=== PATIENT | male | born 1970 | race Caucasian/White ===

== ENCOUNTER 2017-05-18 12:04 | Emergency (ER) | payer MEDICARE ==
[2015-07-10 09:42] VITALS: BMI 30.4
[~2017-05-18 12:04] MED LIST: ASPIRIN EC81 M1 PO; TOPROL XL25 MG PO; TRICOR145 MG PO
[2017-05-18 13:18] LABS: APPEARANCE CLEAR (CLEAR); BACTERIA FEW /hpf (NONE SEEN); BILIRUBIN NEGATIVE (NEGATIVE); COLOR YELLOW (YELLOW); EPITHELIAL CELLS 0-5 /hpf (0-5); GLUCOSE NEGATIVE (NEGATIVE); KETONE NEGATIVE (NEGATIVE); MUCUS <1+ /lpf (NONE SEEN); NITRITE NEGATIVE (NEGATIVE); PROTEIN NEGATIVE (NEGATIVE); SPECIFIC GRAVITY 1.015 (1.005-1.020); WHITE CELLS - URINE 0-5 /hpf (0-5)
== END 2017-05-18 15:20 | disposition home or self-care (01) ==
LOC: D.ER 12:04
PROVIDERS: Emergency Medicine
DX: M54.5 Low back pain (principal); F90.9 Attention-deficit hyperactivity disorder, unspecified type

== ENCOUNTER 2017-06-04 11:49 | Outpatient (CLI) | payer MEDICARE ==
[~2017-06-04] VITALS: Ht 172.7 cm; Wt 95.5 kg
[2017-06-04] MEDS ORDERED: HYDROCODONE-APA1 TAB PO (13:41)
[2017-06-04] MEDS ORDERED: TRAZODONE HCL50 MG PO (13:42)
[2017-06-04] MEDS ORDERED: DICLOFENAC SODI50 MG PO (13:42)
[2017-06-04 13:48] VITALS: BP 129/83; Ht 172.7 cm; Wt 95.5 kg
[2017-06-04 13:51] LABS: BASOPHILS 0.2 % (0-2); EOSINOPHILS 5.2 % (0-7); HEMATOCRIT 46.7 % (42.0-54.0); HEMOGLOBIN 16.4 g/dL (13.5-17.5); IMMATURE GRANULOCYTES 0.2 % (0-5); LYMPHOCYTES 36.7 % (15-50); MCH 29.8 pg (26.0-34.0); MCHC 35.1 g/dL (31.0-37.0); MCV 84.9 fL (80.0-100.0); MEAN PLATELET VOLUME 11.4 fL (7.4-10.4); MONOCYTES 15.7 % (2-11); PLATELET COUNT 131 10x3/uL (130-400); RDW 12.6 % (11.5-14.5); WBC 4.4 10x3/uL (4.8-10.8)
== END 2017-06-04 14:35 | disposition home or self-care (01) ==
LOC: D.OPS 11:49
PROVIDERS: Family Medicine
DX: D75.1 Secondary polycythemia (principal)

== ENCOUNTER 2018-05-18 10:35 | Outpatient (CLI) | payer MEDICARE ==
[~2018-05-18] VITALS: Ht 172.7 cm; Wt 90.9 kg
--- NOTE | ~2018-05-18 | HEMODYNAMI ---
PATIENT:ALEJANDRA PRAKASH MEDICAL RECORD: [id number] : 70 LOCATION:D.CAT ADMISSION DATE: 05/18/18 Generatedon:05/18/201814:14 Patient name: ALEJANDRA PRAKASH Patient #: [id number] SSN: : 1970 Date of study: 05/18/2018 Page: Of Hemodynamic Procedure Report Patient Data Patient Demographics Procedure consent was obtained First Name: ALEJANDRA Gender: Male Last Name: OLINDA : 1970 [facility] Initial: TYLER Age: 47 year(s) Patient #: [id number] Race: Additional ID: [id number] Contact details Address: [address] [place] [address] State: [place] City: [place] Zip code: [address] Past Medical History Allergies Allergen Reaction Date Comments Reported Penicillins 07/10/2015 Other allergy 07/10/2015 phenobarbitol Other allergy 05/18/2018 Penicillins 05/18/2018 Admission Admission Data Admission Date: 05/18/2018 Admission Time: 10:35 Admit Source: Other Procedure Procedure Types Cath Procedure Diagnostic Procedure LHC LHC w/Coronaries Peripheral Cath Diagnostic Procedure Inspector Receiving Peripheral Procedures Ghcpp-Nszeyvs-Ljv-Off Procedure Description Procedure Date Procedure Date: 05/18/2018 Procedure Start Time: 13:58 Procedure End Time: 14:07 Procedure Staff Name Function Vick Dove RN Fishing Vessel Deckhand Damaso Miguel MD Performing Physician Chase Sanchez RT Scrub Candice Sanchez RN Fishing Vessel Deckhand Charito Nieves RT Monitor Procedure Data Cath Procedure Fluoroscopy Diagnostic fluoroscopy Total fluoroscopy Time: 1.6 time: 1.6 min min Diagnostic fluoroscopy Total fluoroscopy dose: 528 dose: 528 mGy mGy Contrast Material Contrast Material Type Amount (ml) Isovue 300 99 Entry Location Entry Primary Successful Side Size Upsize Upsize Entry Closure Succes sful Closure Location (Fr) 1 (Fr) 2 (Fr) Remarks Device Remarks Femoral Right 5 Fr Exoseal artery Estimated blood loss: 5 ml Diagnostic catheters Device Type Used For End Catheter Placement MULTIPACK Pigtail 5 Fr LV Angiography catheter MULTIPACK JL 4.0 5Fr Left Coronary catheter Angiography MULTIPACK 3DRC 5Fr Right Coronary catheter Angiography Procedure Complications No complications Procedure Medications Medication Administration Route Dosage 0.9% NaCl I.V. 100 ml/hr Oxygen etCO2 Nasal cannula 2 l/min Lidocaine 2% added to field 20 Heparin Flush Bag added to field 2 bags (1000units/500ml NS) Versed I.V. 2 mg Fentanyl I.V. 50 mcg Hemodynamics Rest Heart Rate: 56 (bpm) Pressure Samples Time Site Value (mmHg) Purpose Heart Use Rate(bpm) 14:00 LV 119/19,20 Snapshot 61 14:00 LV 118/16,20 Pullback 63 14:00 AO 132/88(107) Pullback 63 Gradients Valve Time Site 1 Site 2 Mean SEP/DFP Peak To Heart Use (mmHg) (sec/min) Peak Rate (mmHg) (bpm) Aortic 14:00 LV AO 0 63 118/16,20 132/88(107) Calculations Valve P-P Mean Valve Index Valve Source Name Gradient Area Flow (cm2) Aortic 0 0 Snapshots Pre Cath Intra NCS Post Cath Vital Signs Time Heart Resp SPO2 etCO2 NIBP (mmHg) Rhythm Pain Sedation Rate (ipm) (%) (mmHg) Status Level (bpm) 13:45:15 53 13 99 36 128/85(100) NSR 0 (11) 10(A) , No pain 13:50:09 57 18 100 35.5 124/88(104) NSR 0 (11) 10(A) , No pain 13:54:20 61 16 99 35.5 122/82(99) NSR 0 (11) 10(A) , No pain 13:58:32 59 16 98 33.2 117/76(91) NSR 0 (11) 10(A) , No pain 14:02:46 68 15 98 37 118/71(96) NSR 0 (11) 10(A) , No pain 14:07:00 66 15 99 33.2 124/72(91) NSR 0 (11) 10(A) , No pain Medications Time Medication Route Dose Verified Delivered Reason Notes Eff ectiveness by by 13:48:00 0.9% NaCl I.V. 100 Damaso Candice used for ml/hr [facility] Sanchez procedure RN 13:48:07 Oxygen etCO2 2 Damaso Candice used for Nasal l/min Myriam Daniel procedure cannula MD SHEETS 13:48:13 Lidocaine 2% added 20ml Damaso Petit for local to vial [facility] anesthetic field MD FINE 13:48:20 Heparin Flush added 2 Damaso Petit used for Bag to bags [place] [facility] procedure (1000units/500ml field MD FINE NS) 13:58:29 Versed I.V. 2 mg Damaso Harvey for [facility] Sanchez sedation MD SHEETS 13:58:36 Fentanyl I.V. 50 Damaso Harvey for mcg [facility] Sanchez sedation truck spotter Log Time Note 13:34:06 Admit Source: Other 13:34:35 Diagnostic Cath status Elective 13:34:38 Vick Dove RN sent for patient. Start room use. 13:34:39 Time tracking: Regular hours (M-F 7:00 - 5:00) 13:34:44 Plan of Care:Hemodynamics will remain stable., Cardiac rhythm will remain stable., Comfort level will be maintained., Respiratory function will remain adequate., Patient/ family verbilizes understanding of procedure., Procedure tolerated without complication., Recovers from procedure without complications.. 13:44:02 Patient received from Pre/Post Procedure Room to [facility] Alert and oriented. Tansferred to table in Supine position. 13:44:03 Warm blankets applied, and iveth hugger turned on for patient comfort. 13:44:04 Correct patient and procedure confirmed by team. 13:44:05 Signed procedure consent form obtained from patient. 13:44:06 ECG and BP/O2 sat monitors applied to patient. 13:44:07 Vital chart was started 13:44:09 Baseline sample Acquired. 13:44:12 Rhythm: sinus rhythm 13:48:00 0.9% NaCl 100 ml/hr I.V. was administered by Candice Sanchez RN; used for procedure; 13:48:07 Oxygen 2 l/min etCO2 Nasal cannula was administered by Candice Sanchez RN; used for procedure; 13:48:13 Lidocaine 2% 20ml vial added to field was administered by Damaso Miguel MD; for local anesthetic; 13:48:20 Heparin Flush Bag (1000units/500ml NS) 2 bags added to field was administered by Damaso Miguel MD; used for procedure; 13:49:40 Baseline sample Acquired. 13:54:06 H&P Date Dictated: 05/12/2018 Within 30 days and on chart., H&P Addendum completed by physician on day of procedure. (MUST COMPLETE FOR ALL OUTPATIENTS). 13:54:12 Pre-procedure instructions explained to patient. 13:54:14 Pre-op teaching completed and patient verbalized understanding. 13:54:17 Family in waiting room. 13:54:23 Patient NPO since Breakfast. 13:54:41 Patient allergic to Other allergy 13:54:56 Patient allergic to Penicillins 13:55:05 Is the patient allergic to Iodine/contrast media? No. 13:55:23 Is patient on blood thinner?No 13:55:30 Patient diabetic? No. 13:55:38 ----Pre-sedation anethsthesia assessment.---- 13:55:47 Previous problem with sedation/anesthesia? No ? 13:55:51 Snore? Yes 13:55:55 Sleep apnea? Yes 13:55:59 Deviated septum? No 13:56:01 Opens mouth fully? Yes 13:56:02 Sticks out tongue? Yes 13:56:06 Airway obstruction? No ? 13:56:12 Dentures? Yes ? 13:57:21 Pre procedure: right dorsailis pedis pulse 2+ Normal; easily identifiable; not easily obliterated 13:57:25 Pre procedure: left dorsailis pedis pulse 2+ Normal; easily identifiable; not easily obliterated 13:57:29 Patient pain scale 0/10 ?. 13:57:48 IV patent on arrival in left antecubital with 0.9% NaCl at O. 13:57:50 Lab results completed and on chart. 13:57:59 Right groin area was prepped with chlora-prep and draped in sterile fashion 13:58:01 Sharps counted by scrub and verified by R.N. 13:58:01 Alarms reviewed by R. N. 13:58:03 --------ALL STOP TIME OUT------ 13:58:03 Physician arrived 13:58:04 Final Timeout: patient, procedure, and site verified with staff and physician. All members of the team are in agreement. 13:58:06 Right groin site verified by team. 13:58:09 Physical assessment completed. ASA score P 2 - A patient with mild systemic disease as per Damaso Miguel MD. 13:58:13 Sedation plan: IV Moderate Sedation Medication:Versed, Fentanyl 13:58:17 Use device set Femoral Dx 13:58:18 Medline Cath Pack ([id number]) opened to sterile field. 13:58:18 Bag Decanter (2002S) opened to sterile field. 13:58:18 ACIST Syringe (00518) opened to sterile field. 13:58:19 DIAGNOSTIC WIRE .035 260cm J wire (956804) opened to sterile field. 13:58:20 ACIST Hand Control (95477) opened to sterile field. 13:58:21 ACIST Manifold (78224) opened to sterile field. 13:58:22 DIAGNOSTIC Multipack 5Fr catheter set (VV0420) opened to sterile field. 13:58:26 SHEATH 5FR [place] (XCT454) opened to sterile field. 13:58:26 Tegaderm 4 x 4 (1626W) opened to sterile field. 13:58:29 Versed 2 mg I.V. was administered by Candice Sanchez RN; for sedation; 13:58:31 Full Disclosure recording started 13:58:31 Procedure started. 13:58:35 Local anesthetic to right femoral artery with Lidocaine 2% by Damaso Miguel MD.INITIAL ACCESS ONLY 13:58:36 Fentanyl 50 mcg I.V. was administered by Candice Sanchez RN; for sedation; 13:58:44 A 5 Fr sheath was inserted into the Right Femoral artery 14:00:10 A MULTIPACK Pigtail 5 Fr catheter was advanced over the wire and used for LV Angiography. 14:00:17 LV hemodynamics recorded. 14:00:18 LV gram done using CARO 14:00:20 Injector settings: Ml/sec: 5, Volume: 15, 14:01:41 EF : 55 % 14:01:49 Abdominal angiogram w/ runoff was performed. 14:02:37 Catheter removed. 14:04:11 A MULTIPACK JL 4.0 5Fr catheter was advanced over the wire and used for Left Coronary Angiography. 14:04:18 LCA angiography performed. 14:04:22 Injector settings: Ml/sec: 3, Volume: 6, 14:05:05 Catheter removed. 14:05:10 A MULTIPACK 3DRC 5Fr catheter was advanced over the wire and used for Right Coronary Angiography. 14:05:48 RCA angiography performed. 14:05:51 Injector settings: Ml/sec: 3, Volume: 6, 14:06:01 Catheter removed. 14:06:06 EXOSEAL 5Fr (EX500) opened to sterile field. 14:06:20 Sheath removed intact; hemostasis achieved with Exoseal to the Right Femoral artery. 14:06:22 Procedure ended.(Physican Out) 14:06:33 Fluoroscopy time 01.60 minutes. 14:06:37 Fluoroscopy dose: 528 mGy 14:06:37 Flurop Dose total: 528 14:06:40 Contrast amount:Isovue 300 99ml. 14:06:48 Sharps counted by scrub and verified by R.N. 14:06:49 Insertion/operative site no bleeding no hematoma. 14:06:52 Post-op/insertion site Right Femoral artery dressed using a 4 x 4 and Tegaderm. 14:06:54 Post right femoral artery:stable 14:06:56 Post Procedure Pulses reassessed and unchanged 14:06:59 Post procedure rhythm: unchanged. 14:07:01 Estimated blood loss: 5 ml 14:07:03 Patient needs reinforcement of post procedure teaching. 14:07:03 Post procedure instruction explained to patient.Patient verbalizes understanding. 14:07:14 Procedure and supply charges have been captured, reviewed, submitted and are correct. 14:07:22 Procedure Complication : No complications 14:07:25 See physician's report for complete and final results. 14:07:25 Vital chart was stopped 14:07:38 Report given to Pre/Post Procedure Room. 14:07:45 Patient transfered to Pre/Post Procedure Room with Stretcher. 14:07:50 Full Disclosure recording stopped 14:07:50 Procedure ended. 14:07:59 End room use (Document Last) Device Usage Item Name Manufacture Quantity Catalog Hospital Part Current Minimal L ot# / Number Charge Number Stock Stock Serial# Code ACIST Acist 1 99291 809999 294073 858534 20 Syringe Spitogatos.gr (63804) Systems Inc Bag Microtek 1 084524 12702 064280 5 Decanter Medical Inc. () Medline Medline 1 [id number] 081065 00364 120102 5 Cath Pack ([id number]) DIAGNOSTIC [facility] [place] 1 926502 487311 185968 955298 30 WIRE .035 260cm J wire (935326) ACIST Hand Acist 1 64985 949665 169483 028555 5 Control Medical (51178) Systems Inc ACIST Acist 1 09939 062204 504763 549471 5 Manifold Medical (84656) Systems Inc DIAGNOSTIC Cardinal 1 ZV4599 786204 69433 545421 30 Multipack Health 5Fr catheter set ([id number]) Tegaderm 4 3M 1 1626W 140696 159278 469248 5 x 4 (1626W) SHEATH 5FR Terumo 1 ELT149 272684 632368 476689 40 [place] (OBL177) MULTIPACK Cardinal 1 471325 5 Pigtail 5 Health Fr catheter MULTIPACK Cardinal 1 617343 5 JL 4.0 5Fr Health catheter MULTIPACK Cardinal 1 494766 5 3DRC 5Fr Health catheter EXOSEAL 5Fr Cardinal 1 EX500 667954 769196 906370 10 (EX500) Health Signature Audit [place] Stage Time Signature Unsigned Intra-Procedure 05/18/2018 Charito Nieves 2:14:39 PM RT(R) Signatures Monitor : Charito Nieves RT Signature : Date : Time : [id number] [place] [address]
--- NOTE | ~2018-05-18 | OP ---
PATIENT NAME: ALEJANDRA PRAKASH MEDICAL RECORD: [id number] :70 LOCATION:D.CAT ADMISSION DATE: SURGEON: FIDEL FLORES MD DATE OF OPERATION: 05/18/2018 PROCEDURE: Left heart catheterization, selective coronary angiography plus aortofemoral runoff, right femoral artery approach. CATHETERS: A 5-German sheath, 5/4 left and right Robert, 5/4 pig. The procedure was well tolerated. The patient was returned to the [place]. Sheath was removed. ExoSeal device was placed. FINDINGS: Left ventriculography in 30-degree CARO view; normal wall motion and normal systolic function. CORONARY ANATOMY: LEFT MAIN: Left main is free of disease. LAD: LAD has a bridge in its mid portion, but no evidence of obstructive coronary disease. CIRCUMFLEX: Small vessel, free of disease. RIGHT CORONARY ARTERY: Right dominant system, free of disease. IMPRESSION: Normal LV systolic function. Normal coronary anatomy. At the end of procedure, the pigtail catheter was withdrawn to the level of the renal arteries. Aortofemoral runoff was performed. Abdominal aorta shows no evidence of dissection and no evidence of aneurysm. Nonselective injection of the renal artery showed no evidence of renal artery stenosis. RIGHT: Right iliac system internal and external showed no evidence of obstructive disease. Femoral system including common and deep superficial was free of disease with 2-vessel runoff. LEFT: Left iliac system internal and external were free of disease. Femoral system; superficial femoral system is free of disease. Two-vessel runoff was noted. IMPRESSION: No evidence of significant peripheral vascular disease. TRANSINT:[id number] Voice Confirmation ID: [id number] DOCUMENT ID: [id number] FIDLE FLORES MD at 1310 CC: [id number] DICTATION DATE: 05/18/18 1417 FARM WORKER: 05/18/18 1624 DEP CLI 05/18/18 [place] [address]
[~2018-05-18 10:35] MED LIST changes: +DICLOFENAC SODI50 MG PO; +HYDROCODONE-APA1 TAB PO; +TRAZODONE HCL50 MG PO
[2018-05-18] MEDS ORDERED: ZANAFLEX4 MG PO (10:57)
[2018-05-18 11:04] VITALS: BP 129/86; Ht 172.7 cm; Wt 90.9 kg
[2018-05-18 11:13] LABS: BASOPHILS 0.2 % (0-2); EOSINOPHILS 4.8 % (0-7); HEMATOCRIT 49.7 % (42.0-54.0); HEMOGLOBIN 17.7 g/dL (13.5-17.5); LYMPHOCYTES 38.2 % (15-50); MCH 29.9 pg (26.0-34.0); MCHC 35.6 g/dL (31.0-37.0); MCV 84.1 fL (80.0-100.0); MEAN PLATELET VOLUME 10.9 fL (7.4-10.4); MONOCYTES 16.8 % (2-11); RBC 5.91 10x6/uL (4.20-6.10); RDW 12.7 % (11.5-14.5); WBC 4.3 10x3/uL (4.8-10.8)
[2018-05-18 11:26] LABS: CALC OSMOLALITY 280 mosm/kg (275-300); CALCIUM 8.9 mg/dL (8.5-10.1); CARBON DIOXIDE 25.3 mmol/L (21.0-32.0); CHLORIDE - SERUM 105 mmol/L (98-107); CREATININE - SERUM 1.1 mg/dL (0.6-1.3); GLUCOSE 99 mg/dL (74-106); PLATELET COUNT 165 10x3/uL (130-400); SODIUM 141 mmol/L (136-145); UREA NITROGEN 13 mg/dL (7-18); eGFR NON AFRICAN AMERICAN 76 mL/min (90-120)
== END 2018-05-18 16:15 | disposition home or self-care (01) ==
LOC: D.CATH 10:35
PROVIDERS: Internal Medicine Interventional Cardiology
DX: Q24.5 Malformation of coronary vessels (principal); Z01.812 Encounter for preprocedural laboratory examination

== ENCOUNTER 2020-11-09 16:33 | Emergency (ER) | payer MEDICARE, MEDICAID ==
[~2020-11-09] VITALS: Ht 172.7 cm; Wt 97.7 kg
[~2020-11-09 16:33] MED LIST changes: +ZANAFLEX4 MG PO
[2020-11-09 16:35] VITALS: Ht 172.7 cm; Wt 97.7 kg
[2020-11-09] MEDS ORDERED: VASCEPA1 GM PO (16:37)
[2020-11-09] MEDS ORDERED: VALIUM5 MG PO (16:38)
[2020-11-09] MEDS ORDERED: SOMA350 MG PO (16:38)
[2020-11-09 17:03] LABS: BASOPHILS 0.5 % (0-2); HEMATOCRIT 48.7 % (42.0-54.0); HEMOGLOBIN 16.8 g/dL (13.5-17.5); LYMPHOCYTES 44.6 % (15-50); MCHC 34.4 g/dL (31.0-37.0); MCV 84.3 fL (80.0-100.0); MEAN PLATELET VOLUME 8.3 fL (7.4-10.4); MONOCYTES 8.6 % (2-11); NEUTROPHILS 41.3 % (40-80); PLATELET COUNT 160 10x3/uL (130-400); RBC 5.78 10x6/uL (4.20-6.10); RDW 12.6 % (11.5-14.5); WBC 4.5 10x3/uL (4.8-10.8)
[2020-11-09 17:16] LABS: CALC OSMOLALITY 282 mosm/kg (275-300); CALCIUM 8.6 mg/dL (8.5-10.1); CARBON DIOXIDE 25.6 mmol/L (21.0-32.0); CHLORIDE - SERUM 107 mmol/L (98-107); CREATININE - SERUM 1.1 mg/dL (0.6-1.3); GLUCOSE 142 mg/dL (74-106); POTASSIUM - SERUM 3.7 mmol/L (3.5-5.1); SODIUM 141 mmol/L (136-145); UREA NITROGEN 13 mg/dL (7-18); eGFR NON AFRICAN AMERICAN 75 mL/min (90-120)
[2020-11-09 17:44] LABS: ALBUMIN 3.7 g/dL (3.4-5.0); ALKALINE PHOSPHATASE 63 U/L (30-120); ALT (SGPT) 61 U/L (10-68); BILIRUBIN - TOTAL 0.36 mg/dL (0.2-1.3); CKMB 1.3 U/L (0.0-3.6); CREATINE KINASE 278 UL (21-232); MAGNESIUM - SERUM 1.9 mg/dL (1.8-2.4); PROTEIN - SERUM 6.5 g/dL (6.4-8.2); TROPONIN-I < 0.017 ng/mL (0.000-0.060)
[2020-11-09 17:49] LABS: APTT 27.4 SECONDS (22.8-39.4); INR 1.18 (0.85-1.17); PROTIME 13.9 SECONDS (11.6-15.0)
[2020-11-09] MEDS ORDERED: TORADOL10 MG PO (17:57)
[2020-11-09] MEDS ORDERED: XANAX1 MG PO (17:57)
[2020-11-09] MEDS ORDERED: HYDROCODONE-AC1 EAC2 PO (17:59)
[2020-11-09 18:24] VITALS: BP 120/69
== END 2020-11-09 18:25 | disposition home or self-care (01) ==
LOC: D.ER 16:33
PROVIDERS: Emergency Medicine
DX: F43.23 Adjustment disorder with mixed anxiety and depressed mood (principal); R07.89 Other chest pain; I10 Essential (primary) hypertension; M54.2 Cervicalgia